=== PATIENT | female | born 1965 | race Two or more races ===

== ENCOUNTER 2018-04-12 14:39 | Outpatient (CLI) | payer OTHER ==
[~2018-04-12 14:39] MED LIST: AMBIEN CR6.25 MG/BL; ATENOLOL100 MG; ATIVAN1 MG; COZAAR100 MG PO; PAXIL CR25 MG; SYNTHROID50 MCG PO; ZOCOR40 MG PO
== END 2018-04-12 14:40 | disposition home or self-care (01) ==
LOC: SONOGRAMA 14:39
DX: E04.1 Nontoxic single thyroid nodule (principal); E04.0 Nontoxic diffuse goiter

== ENCOUNTER 2018-04-26 09:51 | Outpatient (CLI) | payer OTHER ==
[~2018-04-26] VITALS: Ht 165.1 cm; Wt 85.3 kg
[2018-04-26] MEDS ORDERED: FLONASE16 GM NASAL (11:51)
[2018-04-26] MEDS ORDERED: ZYRTEC10 MG PO (11:51)
[2018-04-26] MEDS ORDERED: CEFUROXIME500 MG PO (11:51)
== END 2018-04-26 10:10 | disposition home or self-care (01) ==
LOC: OFIC 805 09:51
DX: R43.9 Unspecified disturbances of smell and taste (principal); J32.8 Other chronic sinusitis; J34.3 Hypertrophy of nasal turbinates; G40.89 Other seizures

== ENCOUNTER 2018-04-26 12:35 | Outpatient (CLI) | payer OTHER ==
[~2018-04-26 12:35] MED LIST changes: +CEFUROXIME500 MG PO; +FLONASE16 GM NASAL; +ZYRTEC10 MG PO
== END 2018-04-26 14:56 | disposition home or self-care (01) ==
LOC: TOM 12:35
DX: J32.8 Other chronic sinusitis (principal)